=== PATIENT | male | born 1960 | race Caucasian/White ===

== ENCOUNTER 2019-10-16 10:55 | Outpatient (CLI) | payer OTHER | END 2019-10-16 11:10 | disposition home or self-care (01) | LOC: LAB 10:55 | DX: N20.0 Calculus of kidney (principal) ==

== ENCOUNTER 2019-10-20 07:12 | Outpatient (CLI) | payer OTHER | END 2019-10-20 07:25 | disposition home or self-care (01) | LOC: TOM 07:12 | DX: K40.31 Unilateral inguinal hernia, with obstruction, without gangrene, recurrent (principal) ==

== ENCOUNTER → 2019-11-09 06:00 | Outpatient (CLI) | payer OTHER | END | disposition home or self-care (01) | LOC: LAB 06:00 → ADM 07:15 → CIR.AMB 11-17 07:15 → EDSTATUS 11-17 07:15 | DX: K40.31 Unilateral inguinal hernia, with obstruction, without gangrene, recurrent (principal); Z01.811 Encounter for preprocedural respiratory examination ==

== ENCOUNTER → 2020-01-19 | Day surgery (SDC) | payer OTHER | END | disposition home or self-care (01) | LOC: ADM 01-13 09:45 → CIR.AMB 05:55 | DX: K40.31 Unilateral inguinal hernia, with obstruction, without gangrene, recurrent (principal) ==